=== PATIENT | female | born 1955 | race Caucasian/White ===

== ENCOUNTER 2016-12-13 18:57 | Emergency (ER) | payer BC, OTHER ==
[2016-12-13 19:05] VITALS: TEMP 98.4
--- NOTE | 2016-12-13 19:52 | EDPHY ---
H & P Stated Complaint: Head Pain, Dizzy N&V while at massage. Time Seen by Provider: 12/13/16 19:20 HPI/ROS: Chief complaint: Dizziness, nausea, vomiting, headache HPI: 60-year-old woman began having vertiginous symptoms with ataxia, lightheadedness, nausea, vomiting and a headache immediately after having a massage of her upper back and her neck at 1:30 a.m. this afternoon. She has been in our in the facility waiting for symptoms to improve and then decided to drive home still feeling vertiginous and nauseated. Symptoms have persisted. No chest pain or syncope. Still complaining of some pain on the right side of her head. No recent illness. No fevers or chills. Has never had the similar symptoms in the past. ROS: 10 point Review of Systems is negative except as noted in the HPI. Past medical history: Negative Medications: None Allergies: No known drug allergies Physical exam: Gen: Awake, Alert, No Distress HEENT: Ears: Right ear canal is normal, left ear canal is occluded with large amounts of cerumen Nose: no rhinorrhea Eyes: PERRLA, EOMI, she does have leftward nystagmus with leftward gaze Mouth: Moist mucosa Neck: Supple, no JVD Chest: nontender, lungs clear to auscultation Heart: S1, S2 normal, no murmur Abd: Soft, non-tender, no guarding Back: no CVA tenderness, no midline tenderness Ext: no edema, non-tender Skin: no rash Neuro: CN II-XII intact, normal finger-nose and normal heel-colbert, Sensation grossly intact, Strength 5/5 in bilateral upper and lower extremities - Personal History Current Tetanus/Diphtheria Vaccine: No Current Tetanus Diphtheria and Acellular Pertussis (TDAP): No Tetanus Vaccine Date: 2007 - Medical/Surgical History Hx Asthma: No Hx Chronic Respiratory Disease: No Hx Diabetes: No Hx Cardiac Disease: No Hx Renal Disease: No Hx Cirrhosis: No Hx Alcoholism: No Hx HIV/AIDS: No Hx Splenectomy or Spleen Trauma: No Other PMH: Bilateral TKA, R shoulder surgery. - Social History Smoking Status: Former smoker Constitutional: Initial Vital Signs Temperature (C) 36.9 C 12/13/16 19:00 Heart Rate 82 12/13/16 19:00 Respiratory Rate 16 12/13/16 19:00 Blood Pressure 134/69 H 12/13/16 19:00 O2 Sat (%) 94 12/13/16 19:00 Allergies/Adverse Reactions: Penicillins Allergy (Severe, Verified 12/13/16 19:04) Wheezing/RASH oxycodone Allergy (Verified 12/13/16 19:04) Vomiting Home Medications: Medication Instructions Recorded NK [No Known Home Meds] 12/13/16 Medical Decision Making - Diagnostics Imaging: CT scan of the head and CT angiogram of the head neck are negative per Dr. Myles. Procedures: Procedure: Cerumen removal. After a physical exam was performed cerumen needed to be removed from the patient's ear canal. The indication of the procedure was cerumen impaction and i dizziness. The procedure was performed with an room temperature water irrigation with 16 gauge Angiocath needle and 20 cc syringe. The patient tolerated the procedure well. The procedure was performed by myself. ED Course/Re-evaluation: 60-year-old woman presenting with episode of dizziness after neck with size today. CT scan of the head and CT angiogram of the head neck are negative. She does have a little significant left ear cerumen impaction. This has been removed by me. After this. Patient was feeling improved. She is feeling mildly nauseated and dizzy. Will discharge with follow-up with primary care physician, return for worsening. - Data Points Laboratory Results: Laboratory Results 12/13/16 19:45 12/13/16 19:45 Sodium 140 mEq/L mEq/L (134-144) Potassium 4.0 mEq/L mEq/L (3.5-5.2) Chloride 103 mEq/L mEq/L (97-110) Carbon Dioxide 21 mEq/l L mEq/l (22-31) Anion Gap 16 mEq/L mEq/L (8-16) BUN 19 mg/dL mg/dL (7-23) Creatinine 0.9 mg/dL mg/dL (0.6-1.0) Estimated GFR > 60 Glucose 134 mg/dL H mg/dL (70-100) Calcium 10.5 mg/dL H mg/dL (8.5-10.4) Departure - Departure Disposition: Home, Routine, Self-Care Clinical Impression: Dizziness, Cerumen impaction Condition: Good Instructions: Dizziness (ED), Cerumen Impaction (ED) Additional Instructions: Follow up with primary care physician in 2-3 days if symptoms are not improved. Return to the emergency depart for increasing dizziness, nausea, vomiting, weakness, fevers, chills, or any other concerns. Referrals: NONE *PRIMARY CARE P,. [Primary Care Provider] - As per Instructions Jennifer Ha DO [Doctor of Osteopathy] - As per Instructions
[2016-12-13 20:11] LABS: ANION GAP 16 mEq/L (8-16); CALCIUM 10.5 mg/dL (8.5-10.4); CARBON DIOXIDE 21 mEq/l (22-31); CHLORIDE 103 mEq/L (97-110); CREATININE 0.9 mg/dL (0.6-1.0); GLOMERULAR FILTRATION RATE > 60; GLUCOSE 134 mg/dL (70-100); SODIUM 140 mEq/L (134-144)
[2016-12-13] MEDS ORDERED: IOPAMIDOL (ISOVUE 370) 100 ML BTL IV ONE (20:21)
[2016-12-13 22:31] VITALS: BP 126/71; PULSE 73; RESP 18; O2SAT 98
== END 2016-12-13 22:35 | disposition home or self-care (01) ==
PROC: 3E1B78Z Irrigation of Ear using Irrigating Substance, Via Natural or Artificial Opening (ICD-10-PCS; principal; 2016-12-13)
DX: H61.22 Impacted cerumen, left ear (principal); Z87.891 Personal history of nicotine dependence
CPT/HCPCS: Q9967

== ENCOUNTER → 2019-03-07 | Outpatient (CLI) | payer BC | LOC: FIMAGING 13:11 ==

== ENCOUNTER → 2019-03-19 | Outpatient (CLI) | payer BC | LOC: FIMAGING 10:50 ==